=== PATIENT | male | born 1950 | race Hispanic/Latino ===

== ENCOUNTER 2018-05-15 10:48 | Day surgery (SDC) | payer OTHER ==
[2018-05-10 15:53] VITALS: BP 134/74
[2018-05-10 15:55] LABS: BASOPHILS % (AUTO) 0.3 % (0.0-5.0); EOSINOPHILS % (AUTO) 2.1 % (0.0-8.0); HEMATOCRIT 39.8 % (42-54); LYMPHOCYTES % (AUTO) 29.5 % (21.0-51.0); MEAN CORPUSCULAR HEMOGLOBIN 27.6 pg (27.0-33.0); MEAN CORPUSCULAR HGB CONC 33.4 g/dL (32.0-36.0); MEAN CORPUSCULAR VOLUME 82.7 fL (79-99); MONOCYTES % (AUTO) 7.8 % (3.0-13.0); NEUTROPHILS % (AUTO) 60.3 % (40.0-77.0); PLATELET COUNT (AUTO) 261 K/uL (130-400); RED CELL DISTRIBUTION WIDTH 13.3 % (11.0-15.5); WHITE BLOOD COUNT (AUTO) 7.7 K/uL (4.8-10.8)
[2018-05-10 16:05] LABS: CREATININE 0.8 mg/dL (0.5-1.5)
[2018-05-15] VITALS (18 sets, daily range): BP systolic 92–134; BP diastolic 51–79
[~2018-05-15] VITALS: Ht 163.8 cm; Wt 97.6 kg
[~2018-05-15 10:48] MED LIST: CEFAZOLIN 3GM /D5W 100ML 100 ML IV SCH; LACTATED RINGERS 1000ML 1,000 ML IV SCH
[2018-05-15] MEDS ORDERED: LISI1TAB11 PO (11:18)
[2018-05-15] MEDS ORDERED: EPINEPHRINE 1 MG/ML 30ML VIAL IJ ONE (11:37)
[2018-05-15] MEDS ORDERED: BUPIVACAINE/EPI/PF 0.25% 50 ML VIAL ONE (11:37)
[2018-05-15] MEDS: CEFAZOLIN SODIUM 1 GM VIAL ONE ×2 (11:39→13:00)
--- NOTE | 2018-05-15 11:40 | NUR ---
VALUABLES: CLOTHING, GLASSES, CELL PHONE AND WALLET GIVEN TO SISTER - ZAHRA HUANGStarr
[2018-05-15] MEDS ORDERED: PROPOFOL 10 MG/ML 20ML VIAL IV ONE (11:47)
[2018-05-15] MEDS ORDERED: MIDAZOLAM HCL 1 MG/ML 2ML VIAL ONE (11:48)
[2018-05-15] MEDS ORDERED: FENTANYL CITRATE PF 50 MCG/1 ML 5ML AMP IV ONE (11:49)
[2018-05-15] MEDS ORDERED: ROCURONIUM 10MG/1ML SYR 10 MG/ML ML ONE (13:04)
[2018-05-15] MEDS ORDERED: GLYCOPYRROLATE 1 MG/5 ML SYRINGE ONE (13:15)
[2018-05-15] MEDS ORDERED: NEOSTIGMINE 5MG/5ML SYR IV ONE (13:55)
--- NOTE | 2018-05-15 16:10 | NUR ---
INSTRUCTIONS GIVEN TO SISTER AND PT ON CHECKING FOR CAPILLARY REFILL,SWELLING ,COLOR ,MAINTAIN LT ARM ELEVATED,,,VERBALIZE UNDERSTANDING
== END 2018-05-15 16:30 | disposition home or self-care (01) ==
LOC: DAH 10:48
PROVIDERS: ATTEND Orthopaedic Surgery
DX: M75.102 Unspecified rotator cuff tear or rupture of left shoulder, not specified as traumatic (principal); M75.52 Bursitis of left shoulder; M75.42 Impingement syndrome of left shoulder; Z98.890 Other specified postprocedural states; Z79.899 Other long term (current) drug therapy
CPT/HCPCS: 29824; 29826; 29827; 36415; 80048; 85025; 93005; A4218; A4450; A4510; A4649 ×6; A4930 ×2; A6223; C1713 ×2; J0171; J0690; J2250; J2704; J2710; J3010; J3490 ×2; J7120 ×2